=== PATIENT | male | born 1990 | race Caucasian/White ===

== ENCOUNTER 2020-12-05 03:18 | Emergency (ER) | payer BC ==
[2020-12-05] MEDS ORDERED: Morphine 4 MG/ML VIAL ONE (03:38)
[2020-12-05] MEDS ORDERED: Ketorolac Tromethamine 30 MG/ML VIAL ONE (03:38)
== END 2020-12-05 05:43 | disposition home or self-care (01) ==
LOC: ERS 03:18
DX: S39.012A Strain of muscle, fascia and tendon of lower back, initial encounter (principal)
CPT/HCPCS: 96372; 99283; J1885; J2270